=== PATIENT | male | born 1980 | race Caucasian/White ===

== ENCOUNTER 2016-11-21 06:04 | Emergency (ER) | payer OTHER ==
--- NOTE | 2016-11-21 06:34 | EDM.PDOC ---
ED HPI GENERAL MEDICAL PROBLEM - General Chief Complaint: Laceration Stated Complaint: left hand/thumb laceration Time Seen by Provider: 11/21/16 06:20 Source of Information: Reports: Patient History Limitations: Reports: No Limitations - History of Present Illness INITIAL COMMENTS - FREE TEXT/NARRATIVE: Patient is a 36-year-old who works at [employer] seen with a left thumb laceration approximately 1/2 cm full-thickness apparently patient was sanding when he lost control of the enzo which caught him at the base of the left thumb linearly 1- 1/2 cm. Onset: Today Duration: Minutes: Location: Reports: Upper Extremity, Left Quality: Reports: Ache Severity: Mild Improves with: Reports: None Worsens with: Reports: None Context: Reports: Trauma Associated Symptoms: Reports: No Other Symptoms Left 1-Thumb Pain Score (Numeric/FACES): 1 - Related Data Allergies Allergy/AdvReac Type Severity Reaction Status Date / Time No Known Allergies Allergy Verified 11/21/16 06:12 Home Meds: Home Meds . [No Known Home Meds] 11/21/16 [History] ED ROS GENERAL - Review of Systems Review Of Systems: See Below Constitutional: Reports: No Symptoms HEENT: Reports: No Symptoms Respiratory: Reports: No Symptoms Cardiovascular: Reports: No Symptoms Endocrine: Reports: No Symptoms GI/Abdominal: Reports: No Symptoms : Reports: No Symptoms Musculoskeletal: Reports: No Symptoms Skin: Reports: No Symptoms Neurological: Reports: No Symptoms Psychiatric: Reports: No Symptoms Hematologic/Lymphatic: Reports: No Symptoms Immunologic: Reports: No Symptoms ED EXAM, SKIN/RASH Exam: See Below Exam Limited By: No Limitations General Appearance: Alert, WD/WN, No Apparent Distress Ears: Normal External Exam, Normal Canal, Hearing Grossly Normal, Normal TMs Nose: Normal Inspection, Normal Mucosa, No Blood Throat/Mouth: Normal Inspection, Normal Lips, Normal Teeth, Normal Gums, Normal Oropharynx, Normal Voice, No Airway Compromise Head: Atraumatic, Normocephalic Neck: Normal Inspection, Supple, Non-Tender, Full Range of Motion Respiratory/Chest: No Respiratory Distress, Lungs Clear, Normal Breath Sounds, No Accessory Muscle Use, Chest Non-Tender Cardiovascular: Normal Peripheral Pulses, Regular Rate, Rhythm, No Edema, No Gallop, No JVD, No Murmur, No Rub GI/Abdominal: Normal Bowel Sounds, Soft, Non-Tender, No Organomegaly, No Distention, No Abnormal Bruit, No Mass (Male) Exam: Deferred Rectal (Males) Exam: Deferred Back Exam: Normal Inspection, Full Range of Motion, NT Extremities: Normal Inspection, Normal Range of Motion, Non-Tender, No Pedal Edema, Normal Capillary Refill, Other (Left thumb laceration at the level of first MP joint 1-1/2 7 cm full-thickness) Neurological: Alert, Oriented, CN II-XII Intact, Normal Cognition, Normal Gait, Normal Reflexes, No Motor/Sensory Deficits Psychiatric: Normal Affect, Normal Mood Skin: Wound/Incision Location, Skin: Upper Extremity, Left Characteristics: Linear ED SKIN PROCEDURES - Laceration/Wound Repair Laceration Lac/Wound length In cm: 1.5 Appearance: Linear Distal NVT: Neuro & Vascular Intact Anesthetic Type: Local Local Anesthesia - Lidocaine (Xylocaine): 1% Plain Local Anesthetic Volume: 3cc Skin Prep: Chlorhexidine (Hibiciens) Closed with: Sutures Suture Size: 4-0 # of Sutures: 2 Suture Type: Nylon Course - Vital Signs Last Recorded V/S: Last Vital Signs Temp 97.7 F 11/21/16 07:27 Pulse 53 L 11/21/16 07:27 Resp 14 11/21/16 07:27 BP 136/74 11/21/16 07:27 Pulse Ox 99 11/21/16 07:27 - Orders/Labs/Meds Orders: Active Orders 24 hr Category Date Time Status Vaccines to be Administered [RC] PER UNIT ROUTINE Care 11/21/16 06:43 Active Meds: Medications Discontinued Medications Generic Name Dose Route Start Last Admin Trade Name Lui PRN Reason Stop Dose Admin Diphtheria/Tetanus/Acell Pertussis 0.5 ml 11/21/16 06:42 11/21/16 06:48 Adacel IM 11/21/16 06:43 0.5 ml .ONCE ONE Administration Lidocaine HCl Confirm 11/21/16 06:20 11/21/16 06:40 Xylocaine-Mpf 1% Administered 11/21/16 06:21 Not Given Dose 5 ml .ROUTE .STK-MED ONE Neomycin/Polymyxin/Bacitracin Confirm 11/21/16 06:39 11/21/16 06:49 Triple Antibiotic Oint Administered 11/21/16 06:40 1 each Dose Administration 1 each .ROUTE .STK-MED ONE Departure - Departure Time of Disposition: 07:05 Disposition: Home, Self-Care 01 Condition: Good Clinical Impression: Laceration - Discharge Information Referrals: PCP,None [Primary Care Provider] - Forms: ED Department Discharge - My Orders Last 24 Hours: My Active Orders 11/21/16 06:43 Vaccines to be Administered [RC] PER UNIT ROUTINE - Assessment/Plan Last 24 Hours: My Active Orders 11/21/16 06:43 Vaccines to be Administered [RC] PER UNIT ROUTINE
[2016-11-21] MEDS ORDERED: Bacitracin/Neomycin/Polymyxin B Oint 0.9 GM U/D Packet ONE (06:39)
[2016-11-21] MEDS ORDERED: Diphtheria,Pertussis(Acell),Tetanus Vaccine 0.5 ML SDV IM ONE (06:42)
[2016-11-21 07:28] VITALS: BP 136/74
== END 2016-11-21 07:05 | disposition home or self-care (01) ==
LOC: LL.ED 06:04
DX: S61.012A Laceration without foreign body of left thumb without damage to nail, initial encounter (principal); W29.8XXA Contact with other powered hand tools and household machinery, initial encounter
CPT/HCPCS: 12001; 90471; 90715; 99283